=== PATIENT | male | born 1985 | race Caucasian/White ===

== ENCOUNTER 2017-09-21 07:29 | Emergency (ER) | payer SELFPAY ==
[2017-09-21 07:55] VITALS: BP 132/101
--- NOTE | 2017-09-21 08:48 | UC ---
Dental HPI - HPI Summary HPI Summary: Patient has had a fractured tooth for a year, it has become more painful and for the last 2 days, the side of his face is swollen, warm and has pain from the jaw to the mandaen of the right side of his face - History of Current Complaint Chief Complaint: UCDentalProblem Stated Complaint: DENTAL COMPLAINT Time Seen by Provider: 09/21/17 08:34 Hx Obtained From: Patient Onset/Duration: Gradual Onset, Lasting Weeks Severity: Severe Pain Intensity: 10 - Allergies/Home Medications Allergies/Adverse Reactions: Allergies Allergy/AdvReac Type Severity Reaction Status Date / Time No Known Allergies Allergy Verified 09/21/17 07:48 Home Medications: Home Medications Acetaminophen [Acetaminophen Extra Strength] 1,000 mg PO Q6H PRN 09/21/17 [ History Confirmed 09/21/17] Ibuprofen TAB* [Advil TAB*] 800 mg PO Q6H PRN 09/21/17 [History Confirmed ] Naproxen [Naprosyn 500 mg tab] 500 mg PO BID PRN 09/21/17 [History Confirmed 07/06] PMH/Surg Hx/FS Hx/Imm Hx Previously Healthy: Yes - Surgical History Surgical History: None - Family History Known Family History: Positive: Hypertension - Social History Alcohol Use: None Substance Use Type: Marijuana Substance Use Comment - Amount & Last Used: couple times weekly- last used last night Smoking Status (MU): Former Smoker Have You Smoked in the Last Year: Yes When Did the Patient Quit Smoking/Using Tobacco: 2 weeks ago Review of Systems Constitutional: Negative Skin: Negative Eyes: Negative ENT: Dental Pain Respiratory: Negative Cardiovascular: Negative Gastrointestinal: Negative Genitourinary: Negative Motor: Negative Neurovascular: Negative Musculoskeletal: Negative Neurological: Negative Psychological: Negative Is Patient Immunocompromised?: No All Other Systems Reviewed And Are Negative: Yes Physical Exam Triage Information Reviewed: Yes Appearance: Well-Nourished, Pain Distress Vital Signs: Initial Vital Signs Temp 98.6 F 09/21/17 07:50 Pulse 57 09/21/17 07:50 Resp 16 09/21/17 07:50 BP 132/101 09/21/17 07:50 Pulse Ox 100 09/21/17 07:50 Vital Signs Reviewed: Yes Eye Exam: Normal ENT: Positive: Pharynx normal, TMs normal, Dental tenderness, Sinus tenderness Dental: Positive: Gross Decay/Caries @, Dental Fracture @ - right 1st molar, Abscess @, Cervical Lymphadenopathy Neck exam: Normal Neck: Positive: Supple, Nontender, Enlarged Nodes @ - right submandibular Respiratory Exam: Normal Respiratory: Positive: Chest non-tender, Lungs clear, Normal breath sounds Cardiovascular Exam: Normal Cardiovascular: Positive: RRR, No Murmur, Pulses Normal Abdominal Exam: Normal Abdomen Description: Positive: Nontender, No Organomegaly, Soft Bowel Sounds: Positive: Present Musculoskeletal Exam: Normal Neurological Exam: Normal Psychological Exam: Normal Skin Exam: Normal Dental Complaint Course/Dx - Course Course Of Treatment: hx obtained, exam performed ,meds reviewed, treated for dental pain and referred to oral surgeon - Differential Dx/Diagnosis Differential Diagnosis/Dx: Dental Abscess, Dental Caries, Fractured Tooth Provider Diagnoses: fractured tooth. abscess Discharge - Sign-Out/Discharge Documenting (check all that apply): Discharge/Admit/Transfer - Discharge Plan Condition: Stable Disposition: HOME Prescriptions: Acetaminop/Codeine 30 MG TAB* [Tylenol/Codeine 30 MG TAB*] 1 tab PO Q6H PRN #12 tab MDD 4 PRN Reason: Pain Penicillin VK TAB* [Penicillin VK 250 mg Tab*] 500 mg PO QID #28 tab Patient Education Materials: Dental Abscess (ED) Referrals: No Primary Care Phys,NOPCP [Primary Care Provider] - Thomas Ma DMD [Doctor of Dental Medicine] - Additional Instructions: 1. take the medication as prescribed. 2. warm compresses and coconut oil gargles. 3. FOllow up with the dentist/oral surgeon in the morning. - Billing Disposition and Condition Condition: STABLE Disposition: HOME
== END 2017-09-21 08:57 | disposition home or self-care (01) ==
LOC: UCCORT 07:29
DX: S02.5XXA Fracture of tooth (traumatic), initial encounter for closed fracture (principal); X58.XXXA Exposure to other specified factors, initial encounter; K04.7 Periapical abscess without sinus; Z87.891 Personal history of nicotine dependence
CPT/HCPCS: 99202; G0463

== ENCOUNTER 2018-03-13 09:14 | Emergency (ER) | payer SELFPAY ==
[2018-03-13 09:47] VITALS: BP 143/84
--- NOTE | 2018-03-13 10:46 | UC ---
UC General HPI - HPI Summary HPI Summary: SORE THROAT X 2 DAYS. FELT LIKE L THEN R AND NOW PAIN. NO DIFFICULTY WITH SWALLOW BUT IS VERY PAINFUL. - History of Current Complaint Chief Complaint: UCRespiratory Stated Complaint: ST Time Seen by Provider: 03/13/18 10:40 Hx Obtained From: Patient Onset/Duration: Gradual Onset Timing: Constant Pain Intensity: 6 Associated Signs & Symptoms: Negative: Fever, SOB - Allergy/Home Medications Allergies/Adverse Reactions: Allergies Allergy/AdvReac Type Severity Reaction Status Date / Time No Known Allergies Allergy Verified 03/13/18 09:43 PMH/Surg Hx/FS Hx/Imm Hx Previously Healthy: Yes - Surgical History Surgical History: None - Family History Known Family History: Positive: Hypertension - Social History Alcohol Use: Occasionally Substance Use Type: Marijuana Substance Use Comment - Amount & Last Used: couple times weekly- last used last night Smoking Status (MU): Heavy Every Day Tobacco Smoker Type: Cigarettes Amount Used/How Often: 1 PPD Have You Smoked in the Last Year: Yes When Did the Patient Quit Smoking/Using Tobacco: 2 weeks ago - Immunization History Vaccination Up to Date: Yes Review of Systems All Other Systems Reviewed And Are Negative: Yes Constitutional: Positive: Negative Skin: Positive: Negative Eyes: Positive: Negative ENT: Positive: Sore Throat Respiratory: Positive: Negative Cardiovascular: Positive: Negative Gastrointestinal: Positive: Negative Genitourinary: Positive: Negative Motor: Positive: Negative Neurovascular: Positive: Negative Musculoskeletal: Positive: Negative Neurological: Positive: Negative Psychological: Positive: Negative Is Patient Immunocompromised?: No Physical Exam Triage Information Reviewed: Yes Appearance: Well-Appearing Vital Signs: Initial Vital Signs Temp 99 F 03/13/18 09:44 Pulse 95 03/13/18 09:44 Resp 16 03/13/18 09:44 BP 143/84 03/13/18 09:44 Pulse Ox 100 03/13/18 09:44 Vital Signs Reviewed: Yes Eyes: Positive: Conjunctiva Clear ENT: Positive: Pharyngeal erythema, TMs normal, Tonsillar swelling, Uvula midline - BUT RED AND MILD TO MODERATE SWELLING.. Negative: Nasal congestion, Nasal drainage, Tonsillar exudate, Trismus, Muffled voice, Hoarse voice Neck: Positive: Supple, Tenderness @ - PERITONSILAR NODES, Enlarged Nodes @ - PERITONSILAR NODES Respiratory: Positive: Lungs clear, Normal breath sounds Cardiovascular: Positive: RRR, No Murmur Abdomen Description: Positive: Nontender, No Organomegaly, Soft. Negative: Distended, Guarding Bowel Sounds: Positive: Present Musculoskeletal: Positive: ROM Intact Neurological: Positive: Alert Psychological: Positive: Age Appropriate Behavior Skin Exam: Normal Diagnostics - Laboratory Diagnostic Studies Completed/Ordered: RAPID STREP=NEG. Course/Dx - Course Course Of Treatment: NO CONCERN FOR PERITONSILAR ABSCESS. RAPID STREP=NEG; HOWEVER, GIVEN ACUTE WORSENING PLUS UVULITIS, WILL TX WITH STEROIR AND ANTIBITIC FOR PRESUMED BACTERIAL INFECTION. BP ILLNESS RELATED, NO HX HTN. - Differential Dx - Multi-Symptom Provider Diagnoses: PHARYNGITIS, UVULITIS. Discharge - Sign-Out/Discharge Documenting (check all that apply): Patient Departure All imaging exams completed and their final reports reviewed: No Studies - Discharge Plan Condition: Stable Disposition: HOME Prescriptions: Amoxicillin PO (*) [Amoxicillin 500 MG CAP*] 500 mg PO TID 10 Days #30 cap predniSONE TAB* [Deltasone 20 MG TAB*] 40 mg PO DAILY 5 Days #10 tab Patient Education Materials: Pharyngitis (ED), Uvulitis (ED) Referrals: DORIAN Denton [Medical Doctor] - 5 Days - Billing Disposition and Condition Condition: STABLE Disposition: Home - Attestation Statements Provider Attestation: Per institutional requirements, I have reviewed the chart, however, I was not consulted specifically or made aware of this patient by the midlevel provider. I did not personally evaluate, interact with , or disposition this patient.
== END 2018-03-13 10:51 | disposition home or self-care (01) ==
LOC: UCCORT 09:14
DX: J02.9 Acute pharyngitis, unspecified (principal); K12.2 Cellulitis and abscess of mouth; Z87.891 Personal history of nicotine dependence
CPT/HCPCS: 87651; 99212; G0463